=== PATIENT | male | born 1975 | race Two or more races ===

== ENCOUNTER 2022-03-04 21:17 | Emergency (ER) | payer SELFPAY ==
[~2022-03-04] VITALS: Ht 182.9 cm; Wt 81.6 kg
[2022-03-04 21:38] VITALS: BP 139/78
--- NOTE | 2022-03-04 21:38 | NUR ---
BIBS. RAN OUT OF METFORMIN 1000MG X 3 DAYS. NEEDS REFILL
[2022-03-04] MEDS ORDERED: METF-442 PO (21:49)
--- NOTE | 2022-03-04 22:30 | NUR ---
Patient discharged to home in stable condition. Written and verbal after care instructions given. Patient verbalizes understanding of instruction. Pt ambulatory with a steady gait
== END 2022-03-04 22:30 | disposition home or self-care (01) ==
LOC: ER 21:29
DX: Z76.0 Encounter for issue of repeat prescription (principal); E11.9 Type 2 diabetes mellitus without complications; Z60.2 Problems related to living alone